=== PATIENT | female | born 1995 | race Caucasian/White ===

== ENCOUNTER 2017-06-03 10:22 | Emergency (ER) | payer BC, OTHER ==
[2017-06-03 10:56] LABS: BILIRUBIN,URINE NEGATIVE (NEG); GLUCOSE,URINE NEGATIVE (NEG); NITRITE,URINE NEGATIVE (NEG); PROTEIN,URINE NEGATIVE (NEG-TRACE)
--- NOTE | 2017-06-03 11:07 | PHYS DOC ---
Past Medical History Past Medical History: Anemia, Asthma Past Surgical History: Tonsillectomy Additional Past Surgical Histo: D & C Alcohol Use: None Drug Use: None Adult General Chief Complaint Chief Complaint: ABDOMINAL PAIN HPI HPI Patient is a 21 year old female presents emergency department stating that a 3 day history of pelvic pain and abdominal pain. She states that the pain is sharp in nature. She states that 2 days ago she became sexually active again after having the D&C 3 months ago. She states that she had increased pain and discomfort with the sexual intercourse. She denies any vaginal discharge. She states she has not taken anything for pain and discomfort. She states that she did call her [facility] from [facility] and they stated that they are unable to get her in for 4 months. Patient states she came here to the emergency department for further evaluation. Denies any nausea vomiting, no vaginal discharge, no fever chills. She did not use any urinary symptoms Review of Systems Review of Systems Constitutional: Denies fever or chills [] Eyes: Denies change in visual acuity, redness, or eye pain [] HENT: Denies nasal congestion or sore throat [] Respiratory: Denies cough or shortness of breath [] Cardiovascular: No additional information not addressed in HPI [] GI: lower abdominal pain/pelvis pain, denies nausea, vomiting, bloody stools or diarrhea [] : Denies dysuria or hematuria [] Musculoskeletal: Denies back pain or joint pain [] Integument: Denies rash or skin lesions [] Neurologic: Denies headache, focal weakness or sensory changes [] Endocrine: Denies polyuria or polydipsia [] Current Medications Current Medications Current Medications Medications (Trade) Dose Ordered Sig/[facility] Start Time Stop Time Status Last Admin Dose Admin Azithromycin (Zithromax) 1,000 mg 1X ONCE 06/03/17 13:00 06/03/17 13:01 LA Allergies Allergies Allergies Coded Allergies Type Severity Reaction Last Updated Verified No Known Drug Allergies 04/01/14 No Physical Exam Physical Exam Constitutional: Well developed, well nourished, no acute distress, non-toxic appearance. [] HENT: Normocephalic, atraumatic, bilateral external ears normal, oropharynx moist, no oral exudates, nose normal. [] Eyes: PERRLA, EOMI, conjunctiva normal, no discharge. [] Neck: Normal range of motion, no tenderness, supple, no stridor. [] Cardiovascular:Heart rate regular rhythm, no murmur [] Lungs & Thorax: Bilateral breath sounds clear to auscultation [] Abdomen: Bowel sounds normal, soft, no tenderness, no masses, no pulsatile masses. [] Skin: Warm, dry, no erythema, no rash. [] Back: No tenderness Extremities: No tenderness, no cyanosis, no clubbing, ROM intact, no edema. [] Neurologic: Alert and oriented X 3, normal motor function, normal sensory function, no focal deficits noted. [] Psychologic: Affect normal, judgement normal, mood normal. [] Pelvic exam completed with white vaginal discharge noted cervix appears to be red. No adnexal tenderness noted slight CMT noted. Current Patient Data Vital Signs Vital Signs Date Time Temp Pulse Resp B/P (MAP) Pulse Ox O2 Delivery O2 Flow Rate FiO2 06/03/17 10:45 98.4 77 18 95/50 (65) 98 Room Air 98.4 Lab Values Laboratory Tests Test 06/03/17 09:42 06/03/17 10:33 06/03/17 10:45 POC Urine HCG, Qualitative Hcg negative (Negative) Urine Collection Type Void Urine Color Yellow Urine Clarity Clear Urine pH 6.0 Urine Specific Pritchett <=1.005 Urine Protein Negative mg/dL (NEG-TRACE) Urine Glucose (UA) Negative mg/dL (NEG) Urine Ketones (Stick) Negative mg/dL (NEG) Urine Blood Trace (NEG) Urine Nitrite Negative (NEG) Urine Bilirubin Negative (NEG) Urine Urobilinogen Dipstick 1.0 mg/dL (0.2 mg/dL) Urine Leukocyte Esterase Large (NEG) Urine RBC 6-10 /HPF (0-2) Urine WBC 1-4 /HPF (0-4) Urine Squamous Epithelial Cells Many /LPF Urine Bacteria Few /HPF (0-FEW) White Blood Count 6.4 x10^3/uL (4.0-11.0) Red Blood Count 5.01 x10^6/uL (3.50-5.40) Hemoglobin 14.8 g/dL (12.0-15.5) Hematocrit 42.3 % (36.0-47.0) Mean Corpuscular Volume 85 fL (79-100) Mean Corpuscular Hemoglobin 30 pg (25-35) Mean Corpuscular Hemoglobin Concent 35 g/dL (31-37) Red Cell Distribution Width 13.2 % (11.5-14.5) Platelet Count 187 x10^3/uL (140-400) Neutrophils (%) (Auto) 66 % (31-73) Lymphocytes (%) (Auto) 22 % (24-48) L Monocytes (%) (Auto) 9 % (0-9) Eosinophils (%) (Auto) 2 % (0-3) Basophils (%) (Auto) 1 % (0-3) Neutrophils # (Auto) 4.2 x10^3uL (1.8-7.7) Lymphocytes # (Auto) 1.4 x10^3/uL (1.0-4.8) Monocytes # (Auto) 0.6 x10^3/uL (0.0-1.1) Eosinophils # (Auto) 0.1 x10^3/uL (0.0-0.7) Basophils # (Auto) 0.0 x10^3/uL (0.0-0.2) Sodium Level 140 mmol/L (136-145) Potassium Level 3.8 mmol/L (3.5-5.1) Chloride Level 105 mmol/L (98-107) Carbon Dioxide Level 24 mmol/L (21-32) Anion Gap 11 (6-14) Blood Urea Nitrogen 7 mg/dL (7-20) Creatinine 0.7 mg/dL (0.6-1.0) Estimated GFR (Cockcroft-Gault) 104.6 BUN/Creatinine Ratio 10 (6-20) Glucose Level 90 mg/dL (70-99) Calcium Level 8.8 mg/dL (8.5-10.1) Total Bilirubin 0.8 mg/dL (0.2-1.0) Aspartate Amino Transferase (AST) 34 U/L (15-37) Alanine Aminotransferase (ALT) 53 U/L (14-59) Alkaline Phosphatase 65 U/L (46-116) Total Protein 7.6 g/dL (6.4-8.2) Albumin 4.1 g/dL (3.4-5.0) Albumin/Globulin Ratio 1.2 (1.0-1.7) Laboratory Tests 06/03/17 10:45 Laboratory Tests 06/03/17 10:45 Microbiology 06/03/17 Wet Prep - Final, Complete EKG EKG [] Radiology/Procedures Radiology/Procedures [] Course & Med Decision Making Course & Med Decision Making Pertinent Labs and Imaging studies reviewed. (See chart for details) Patient was noted to have a urinary tract infection CBC CMP was within normal limits. Ultrasound was relatively normal. Patient will be provided with Zithromax here in the emergency department for cervicitis. She'll be provided with Flagyl upon discharge for bacterial vaginosis. She'll be provided with Macrobid for urinary tract infection. She was encouraged drink plenty of fluids such as water and cranberry juice. She was recommended to avoid cranberry juice cocktail, carbonated beverages, caffeine, alcohol and citrus tree disease are considered irritants to the bladder. Patient will be discharged home in stable condition recommended the patient follow-up with her primary care physician or [facility] within the next 7-10 days to make sure she clears the urinary tract infection. Signs and symptoms to return back to emergency department as been provided. [] Dragon Disclaimer Dragon Disclaimer This electronic medical record was generated, in whole or in part, using a voice recognition dictation system. Departure Departure Impression: Primary Impression: Cervicitis Additional Impressions: Bacterial vaginosis Urinary tract infection Disposition: 01 HOME, SELF-CARE Condition: STABLE Referrals: NO PCP (PCP) Patient Instructions: Bacterial Vaginosis, [id number], Cervicitis, Urinary Tract Infection, [id number] Additional Instructions: You've been provided with Zithromax here in the emergency department as her for cervicitis. You've also been noted to have a urinary tract infection as well as bacterial vaginosis. Your results for sexual transmitted infections will take 2-3 days to come back. You will be notified by phone if these results are positive. Medications as prescribed. Drink plenty fluids such as water and cranberry juice. Avoid cranberry juice cocktail, carbonated beverages, citrus fruits, caffeine, alcohol as these are considered irritants to the bladder. Follow-up to primary care physician in the next week. Return back to emergency department sign symptoms of become worse. Scripts Metronidazole (FLAGYL) 500 Mg Tablet 1 TAB PO BID, #14 TAB Prov: BEKAH BATRES F[employer]ION MERCHANDIS[employer] 7/12/17 Nitrofurantoin Monohyd/M-Cryst (MACROBID 100 MG CAPSULE) 100 Mg Capsule 1 CAP PO BID, #14 CAP Prov: BEKAH BATRES APRN 06/03/17 Problem Qualifiers BEKAH BATRES APRN Jun 03, 2017 11:07
[2017-06-03 11:09] LABS: BACTERIA,URINE FEW /HPF (0-FEW); SQUAMOUS EPITHELIAL CELL,UR MANY /LPF
[2017-06-03 11:44] LABS: BASO % 1 % (0-3); EOS % 2 % (0-3); HEMATOCRIT 42.3 % (36.0-47.0); HEMOGLOBIN 14.8 g/dL (12.0-15.5); LYMPH # 1.4 x10^3/uL (1.0-4.8); LYMPH % 22 % (24-48); MEAN CORPUSCULAR HEMOGLOBIN 30 pg (25-35); MEAN CORPUSCULAR HGB CONC 35 g/dL (31-37); MEAN CORPUSCULAR VOLUME 85 fL (79-100); MONO % 9 % (0-9); NEUT % 66 % (31-73); PLATELET COUNT 187 x10^3/uL (140-400); RED BLOOD COUNT 5.01 x10^6/uL (3.50-5.40); RED CELL DISTRIBUTION WIDTH 13.2 % (11.5-14.5); WHITE BLOOD COUNT 6.4 x10^3/uL (4.0-11.0)
[2017-06-03 11:52] LABS: CALCIUM 8.8 mg/dL (8.5-10.1); CREATININE 0.7 mg/dL (0.6-1.0); GFR 104.6; POTASSIUM 3.8 mmol/L (3.5-5.1)
[2017-06-03 11:58] LABS: ALBUMIN 4.1 g/dL (3.4-5.0); ALBUMIN/GLOBULIN RATIO 1.2 (1.0-1.7); TOTAL BILIRUBIN 0.8 mg/dL (0.2-1.0); TOTAL PROTEIN 7.6 g/dL (6.4-8.2)
--- NOTE | 2017-06-03 12:15 | RAD ---
Pelvic ultrasound, 06/03/2017: History: Pelvic pain Transabdominal and transvaginal scans were obtained. The transabdominal scans are of limited utility due to lack of bladder distention. The uterus measures 10.3 x 6.7 x 5.3 cm. The central uterine echo complex is thickened and mildly heterogeneous, measuring nearly 2 cm. There are follicular cysts in the right ovary. The left ovary contains small follicular cysts as well as a 1.8 cm complex nodule which probably represents a collapsing hemorrhagic cyst. There is a 1.5 cm simple cyst along the margin of the left ovary suggesting an exophytic ovarian cyst versus a paraovarian cyst. Blood flow is present in both ovaries. A small amount of free fluid is noted in the pelvis. IMPRESSION: 1. Thickening of the central uterine echo complex with diagnostic considerations including endometrial hyperplasia or an endometrial polyp. 2. Small complex nodule in the left ovary which is probably a collapsing hemorrhagic cyst. 3. Small simple cyst along the margin of the left ovary suggesting an exophytic ovarian cyst versus a paraovarian cyst. 4. Trace amount of free fluid in the pelvis.
[2017-06-03] MEDS ORDERED: AZITHROMYCIN 250 MG TABLET. PO ONE (13:00)
[2017-06-03] MEDS ORDERED: NITR100C62 PO (13:10)
[2017-06-03] MEDS ORDERED: METR500T PO (13:10)
[2017-06-03 14:38] VITALS: BP 96/51
== END 2017-06-03 13:21 | disposition home or self-care (01) ==
LOC: ER 10:22
DX: N72 Inflammatory disease of cervix uteri (principal); N76.0 Acute vaginitis; B96.89 Other specified bacterial agents as the cause of diseases classified elsewhere; N39.0 Urinary tract infection, site not specified; J45.909 Unspecified asthma, uncomplicated; Z86.2 Personal history of diseases of the blood and blood-forming organs and certain disorders involving the immune mechanism
CPT/HCPCS: 36415; 76830; 76856; 80053; 81001; 81025; 85027; 87086; 87491; 87591; 99285; Q0111; Q0144

== ENCOUNTER 2017-08-15 19:55 | Emergency (ER) | payer OTHER ==
[~2017-08-15] VITALS: Ht 162.6 cm; Wt 68.0 kg
[~2017-08-15 19:55] MED LIST: METR500T PO; NITR100C62 PO
[2017-08-15 20:39] LABS: BILIRUBIN,URINE NEGATIVE (NEG); GLUCOSE,URINE NEGATIVE (NEG); NITRITE,URINE NEGATIVE (NEG); PH,URINE 6.5; PROTEIN,URINE NEGATIVE (NEG-TRACE); UROBILINOGEN,URINE 0.2 mg/dL (0.2 mg/dL)
[2017-08-15 20:40] VITALS: BP 107/64
[2017-08-15 20:46] LABS: BACTERIA,URINE MODERATE /HPF (0-FEW); RBC,URINE 0 /HPF (0-2); SQUAMOUS EPITHELIAL CELL,UR MANY /LPF
[2017-08-15 20:59] LABS: BASO % 1 % (0-3); EOS % 2 % (0-3); HEMATOCRIT 38.7 % (36.0-47.0); HEMOGLOBIN 13.5 g/dL (12.0-15.5); LYMPH # 1.6 x10^3/uL (1.0-4.8); LYMPH % 21 % (24-48); MEAN CORPUSCULAR HEMOGLOBIN 30 pg (25-35); MEAN CORPUSCULAR HGB CONC 35 g/dL (31-37); MEAN CORPUSCULAR VOLUME 86 fL (79-100); MONO % 6 % (0-9); NEUT % 70 % (31-73); PLATELET COUNT 197 x10^3/uL (140-400); RED BLOOD COUNT 4.52 x10^6/uL (3.50-5.40); RED CELL DISTRIBUTION WIDTH 13.4 % (11.5-14.5); WHITE BLOOD COUNT 7.4 x10^3/uL (4.0-11.0)
[2017-08-15 21:00] LABS: BASO # 0.1 x10^3/uL (0.0-0.2)
[2017-08-15 21:16] LABS: CALCIUM 8.8 mg/dL (8.5-10.1); CREATININE 0.6 mg/dL (0.6-1.0); GFR 123.9; POTASSIUM 3.7 mmol/L (3.5-5.1)
[2017-08-15 21:21] LABS: ALBUMIN 3.5 g/dL (3.4-5.0); ALBUMIN/GLOBULIN RATIO 1.1 (1.0-1.7); TOTAL BILIRUBIN 0.4 mg/dL (0.2-1.0); TOTAL PROTEIN 6.7 g/dL (6.4-8.2)
--- NOTE | 2017-08-15 22:22 | RAD ---
OB ultrasound less than 14 weeks to include transabdominal and transvaginal imaging 08/15/2017 CLINICAL HISTORY: First trimester with intermittent pelvic pain. TECHNIQUE: Using the distended urinary bladder as a sonographic window, a real-time ultrasound examination of the pelvis was performed. Multiple images were obtained. FINDINGS: A gestational sac with a small associated yolk sac are seen within the endometrial canal within the body/fundus of the uterus. This has a mean sac diameter of 5.7 mm. This corresponds to an estimated gestational age by ultrasound 5 weeks 2 days plus or minus a standard deviation of 6 days. A linear structure which may represent an embryonic pole is seen within this gestational sac. This is too small to accurately date. No embryonic cardiac activity is seen at this time. A 1.3 cm hypoechoic area is seen inferior to the gestational sac which likely represents an area of subchorionic hemorrhage. Both ovaries are within normal limits in size and configuration. The right ovary measures 3.6 x 2.3 x 2.8 cm in size. The left ovary measures 3.3 x 2.8 x 2.2 cm in size. No adnexal mass is seen. A small amount of free fluid is noted. IMPRESSION: Findings are seen most consistent with a very early IUP as outlined above. Electronically signed by: Vin Jon MD (08/15/2017 10:19 PM) [facility]
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
== END 2017-08-15 23:20 | disposition home or self-care (01) ==
LOC: ER 19:55
DX: O20.0 Threatened abortion (principal); Z3A.01 Less than 8 weeks gestation of pregnancy
CPT/HCPCS: 36415; 76801; 76817; 80053; 81001; 81025; 84702; 85025; 86900; 86901; 87086; 99285-25

== ENCOUNTER 2018-01-16 11:38 | Emergency (ER) | payer OTHER ==
[2018-01-16 12:04] LABS: URINE HCG POC HCG NEGATIVE (Negative)
[2018-01-16] MEDS: IBUPROFEN 600 MG TABLET. PO ×2 (12:16)
== END 2018-01-16 13:35 | disposition home or self-care (01) ==
LOC: ER 11:38
DX: R07.89 Other chest pain (principal); F41.9 Anxiety disorder, unspecified; R06.02 Shortness of breath; F32.9 Major depressive disorder, single episode, unspecified; F17.210 Nicotine dependence, cigarettes, uncomplicated; J45.909 Unspecified asthma, uncomplicated; Z79.899 Other long term (current) drug therapy
CPT/HCPCS: 71045; 81025; 93005; 99284-25

== ENCOUNTER 2018-01-16 21:03 | Emergency (ER) | payer OTHER | END 2018-01-16 21:32 | disposition left against medical advice (07) | LOC: ER 21:03 | DX: R05 Cough (principal); R07.89 Other chest pain; Z53.21 Procedure and treatment not carried out due to patient leaving prior to being seen by health care provider ==

== ENCOUNTER 2018-11-08 17:34 | Observation (INO) | payer OTHER ==
[2018-01-16 13:00] VITALS: BP 91/59
[2018-11-08] MEDS ORDERED: IV RINGERS,LACTATED 1000ML 1,000 ML IV SCH (18:00)
== END 2018-11-08 19:00 | disposition left against medical advice (07) ==
LOC: 3 SO LND 17:34
PROVIDERS: ADMIT Obstetrics & Gynecology; ATTEND Obstetrics & Gynecology
DX: Z34.93 Encounter for supervision of normal pregnancy, unspecified, third trimester (principal); Z3A.32 32 weeks gestation of pregnancy
CPT/HCPCS: G0379